=== PATIENT | female | born 1985 | race Caucasian/White ===

== ENCOUNTER 2017-03-11 17:42 | Observation (INO) | payer MEDICAID ==
[~2017-03-11] VITALS: Ht 175.3 cm; Wt 84.5 kg
--- NOTE | ~2017-03-11 | ER ---
PATIENT'S NAME: GINO FORMAN [facility] AGE: 31 Y [address] ROOM: [place] [address] LOCATION: GPCU ADMIT DATE: 03/11/2017 ER/Outpatient Report DISCHARGE DATE: FAMILY PHYSICIAN: Chana Rogers MD ATTENDING PHYSICIAN: KARLA FARRELL Time of Arrival: 1742 hours. Time Seen: 1818 hours. IDENTIFICATION: A 31-year-old female. CHIEF COMPLAINT: Nausea, vomiting, elevated blood sugar. HISTORY OF PRESENT ILLNESS: The patient is a 31-year-old female with insulin-dependent diabetes, who went to a wedding last night and drank quite a bit of alcohol to the point where she "passed out." She does not remember what happened. She reports probably falling. She has a contusion on her frontal scalp that she does not remember what happened, she said maybe she fell down the stairs. She has had nausea and vomiting today times greater than 20, loose stools x3. No blood in her stools. No dark, tarry, or black stools. She has an insulin pump, but woke up this morning and it was off. She had NovoLog 1.2 units basal rate and boluses. She just bolused herself 6 units while here in the emergency room. She has had a history of DKA. She does not have a primary care physician. She was admitted in August of 2014 with DKA. She has seen Dr. Rogers, but is currently not seeing anyone. ALLERGIES: NO KNOWN DRUG ALLERGIES. CURRENT MEDICATIONS: Insulin pump with NovoLog. MEDICAL PROBLEMS: History of diabetes mellitus, insulin requiring, on an insulin pump and history of DKA. PRIOR SURGERIES: section. SOCIAL HISTORY: The patient lives here in [place]. Tobacco use, 1 pack per day. Alcohol use, socially, but she drank heavily last night. Drug use, denies. PATIENT'S NAME: GINO FORMAN [facility] AGE: 31 Y [address] ROOM: [place] [address] LOCATION: GPCU ADMIT DATE: 03/11/2017 ER/Outpatient Report DISCHARGE DATE: FAMILY PHYSICIAN: Chana Rogers MD ATTENDING PHYSICIAN: KARLA FARRELL REVIEW OF SYSTEMS: All systems reviewed and negative other than what is noted in the HPI. She does have an IUD. Last menstrual period, uncertain. FAMILY HISTORY: No pertinent family history identified. PHYSICAL EXAMINATION: VITAL SIGNS: Height 5 feet 9 inches and weight 76.6 kg. Blood pressure 120/39, pulse 118, respirations 18, temperature 99.2, and saturations 100%. GENERAL: A 31-year-old female, in obvious distress. Nausea and vomiting. HEENT: Head: Normocephalic. Ears: TMs translucent, both ears. Eyes: Pupils equal and reactive to light and accommodation. Extraocular movements intact. She does have a contusion on her frontal scalp midline. Nose: Mucosa pink. No lesions. Mouth: No lesions. Mucous membranes are dry. Pharynx benign. NECK: Supple. No lymphadenopathy. No tenderness to palpation of her cervical spine. LUNGS: Clear to auscultation. Breath sounds are equal. No rhonchi, wheezes, or rales. HEART: Sinus tachycardia. No murmur, rub, or gallop. ABDOMEN: Bowel sounds present. Soft, nondistended. Tender to palpation. No rebound or guarding. SKIN: [place], warm, and dry. No lesions or rashes noted other than the contusion, frontal scalp, and then she does have some abrasions on her lower extremities. No tenderness to pelvic rock. EXTREMITIES: Full range of motion. No deformities noted. LABORATORY DATA: VBG; pH 7.23, pCO2 33, bicarb 14.1. Hemoglobin A1c 7.2. UA: Specific gravity 1.020, pH 5, glucose 1000 mg/dL, ketones 150 mg/dL. UA otherwise unremarkable. Urine hCG is negative. Initial Accu-Chek was elevated in the high 400s, repeat Accu-Chek was 439 at 7:30 p.m. Procalcitonin 0.82. Ketones positive at 1:16. Sodium 133; potassium 4.9; chloride 95; CO2 15; BUN 21; creatinine 1.4, this is up from 0.8 in 2014; and blood sugar 456. AST 207, ALT 136. Magnesium 2.1. Amylase 35, lipase 64. Initial venous pH 7.25. Hemoglobin 15.1, hematocrit 45, platelets 298, and white count 16.9 with 90% neutrophils. EMERGENCY DEPARTMENT COURSE: An IV was initiated, 1 L of normal saline bolus, 2nd L of normal saline bolus, and then a 3rd L at 200 mL/h. Zofran 4 mg for nausea, repeated x1. Insulin regular 10 units IV with insulin drip per protocol. PATIENT'S NAME: GINO FORMAN [facility] AGE: 31 Y [address] ROOM: [place] [address] LOCATION: GPCU ADMIT DATE: 03/11/2017 ER/Outpatient Report DISCHARGE DATE: FAMILY PHYSICIAN: Chana Rogers MD ATTENDING PHYSICIAN: KARLA FARRELL IMPRESSION AND PLAN: 1. Diabetic ketoacidosis. DKA protocol initiated in the emergency room. Dr. Farrell evaluated the patient in the emergency room. Plan for admission. 2. Nausea and vomiting secondary to diabetic ketoacidosis. Zofran given in the emergency room. 3. Possible head injury with questionable fall. Head CT and cervical spine CT were obtained and were negative per Dr. Gupta, radiologist. One-view chest x-ray, no acute process, pending Radiology over-read. 4. Acute kidney injury with creatinine of 1.4. 5. Elevated liver enzymes. 6. Elevated white blood cell count, mildly elevated procalcitonin, and elevated lactate. No infectious etiology identified. Plan per Dr. Farrell. Actually 40 minutes of critical care provided with this patient. LUKE GUILLAUME MD CAR/modl /[id number] d: 03/12/17 0318 t: 03/12/17 0404, OUTPATIENT REPORT
--- NOTE | ~2017-03-11 | HP ---
PATIENT'S NAME: GINO FORMAN [facility] AGE: 31 Y [address] ROOM: [place] [address] LOCATION: GPCU ADMIT DATE: 03/11/2017 History & Physical DISCHARGE DATE: FAMILY PHYSICIAN: Chana Rogers MD ATTENDING PHYSICIAN: KARLA FARRELL DATE OF SERVICE: CHIEF COMPLAINT: Nausea, vomiting, and hyperglycemia resulting in DKA. HISTORY OF PRESENT ILLNESS: This is a 31-year-old female with a past medical history remarkable for type 1 diabetes, on home insulin pump, who states that yesterday last night she went to a wedding democrat in a friend's house and she drank so much alcohol that she passed out. Somehow, one of her friends brought her back home last night, and apparently she probably she had fallen down the stairs at home, but she was not sure. This morning, she woke up on her bed with her insulin pump out of place near the side of her bed. She woke up and she felt nauseated and she vomited once in the morning. She checked her fingerstick glucose and it was 470. She used insulin pump to give the loading dose and then she went to eat breakfast with a friend outside; and after that, she came back and she felt nauseous again and she vomited about 20 times. Because of the nausea, vomiting, and hyperglycemia, the patient came here to the ER for evaluation. She denies any fever, chills, chest pain, cough, palpitation, shortness of breath, confusion, headache, or any other complaints. The patient does have loose stool, but she believes it is from the alcohol, she has had about 3 episodes of loose stool today. REVIEW OF SYSTEMS: As mentioned in the history of present illness. All other systems were reviewed and were negative except those mentioned in the history of present illness. PAST MEDICAL HISTORY: Type 1 diabetes, diagnosed at age 10, on home insulin pump, she has had one DKA in the past, this is her 2nd time. ALLERGIES: NO KNOWN DRUG ALLERGIES. HOME MEDICATIONS: On home insulin pump. PATIENT'S NAME: GINO FORMAN [facility] AGE: 31 Y [address] ROOM: [place] [address] LOCATION: GPCU ADMIT DATE: 03/11/2017 History & Physical DISCHARGE DATE: FAMILY PHYSICIAN: Chana Rogers MD ATTENDING PHYSICIAN: KARLA FARRELL SOCIAL HISTORY: The patient is active cigarette smoker about 1 pack per day for the last 10 years. She is a social alcohol drinker, she denies daily alcohol intake, and she denies alcohol abuse, she just drink on and off only at parties. She denies any illegal drug use. FAMILY HISTORY: Mother is healthy. Father had myocardial infarction at age 50s. PAST SURGICAL HISTORY: Status post x1. PHYSICAL EXAMINATION: VITAL SIGNS: At the time of my dictation, temperature 98, heart rate 90, respirations 14, blood pressure 120/80, and saturation 99% on room air. GENERAL APPEARANCE: Alert and oriented x3, in no acute distress. The patient looks dry. HEENT: Pupils equally round and reactive to light. Extraocular muscles intact. Anicteric sclerae. Nasal turbinates are normal bilaterally. Dry oral mucosa. NECK: No JVD. No neck stiffness. No cervical lymphadenopathy. CARDIOVASCULAR: Regular rate and rhythm. Normal S1, S2. No murmur, no rubs, no gallops. RESPIRATORY: Clear. No rhonchi, no rales, no wheezing, no crackles. ABDOMEN: Soft, nontender, nondistended, normal bowel sounds, no hepatosplenomegaly. Bowel sounds present. EXTREMITIES: No edema in upper or lower extremities. SKIN: She has a tender hematoma in the front of her head from the fall and a minor skin laceration on her left hand. NEUROLOGICAL: Grossly nonfocal. MUSCULOSKELETAL: Range of motion intact. LABORATORY DATA: Venous blood gas on room air show pH of 7.25, pCO2 37, bicarbonate 16.2, and lactic acid 5.4. White blood cells 16.9, hemoglobin 15.1, hematocrit 45, platelet 298, glucose 456, BUN 21, and creatinine 1.4. Sodium 133, potassium 4.9, chloride 95, CO2 15, calcium 9.5, total protein 8.2, albumin 4.6, AST 207, ALT 136, alkaline phosphatase 111, total bilirubin 1.4, phosphorus 6.2, magnesium 2.1, anion gap 27.9, and GFR 44. Hemoglobin A1c 7.2. Urinalysis negative for nitrate, negative for protein, 150 ketones, 1000 glucose, and negative leukocyte. Urine hCG negative. Amylase 35, lipase 64, acetone positive. Procalcitonin 0.82. IMAGING STUDY: PATIENT'S NAME: GINO FORMAN [facility] AGE: 31 Y [address] ROOM: [id number] [place], [place] [address] LOCATION: GPCU ADMIT DATE: 03/11/2017 History & Physical DISCHARGE DATE: FAMILY PHYSICIAN: Chana Rogers MD ATTENDING PHYSICIAN: KARLA FARRELL 1. CT of the brain without contrast on admission showed negative CT. 2. CT of the cervical spine without contrast on admission negative for any fracture. EMERGENCY ROOM COURSE: In the emergency room, the patient got a total of 2 L of normal saline and also got 10 units of insulin bolus, IV regular insulin, and also the patient also got 6 units from the insulin pump. ASSESSMENT AND PLAN: 1. Regarding her diabetic acidosis: The cause could be from noncompliance with insulin pump use and likely from the alcohol-induced diabetic ketoacidosis. The plan will be use diabetic ketoacidosis protocol and check a basic metabolic panel every 2 hours to decide to change to intravenous fluids with or without potassium and also check fingerstick glucose every hour and continue currently with normal saline at 200 mL/hr and continue intravenous regular insulin drip per diabetic ketoacidosis protocol. I will get a chest x-ray and also EKG as part of the diabetic ketoacidosis workup. Due to her elevated lactic acid, white blood cell, and procalcitonin, I will also be getting a blood culture one set. The patient does not look septic to me. The elevation of lactic acid, leukocytosis, and the procalcitonin could be from reactive from diabetic ketoacidosis; however, given that the patient does have elevation of lactic acid, white blood cells, and procalcitonin, I will cover her empirically with broad-spectrum antibiotic one dose and tomorrow can decide depending on her clinical course. I will cover her with 1 dose of vancomycin and 1 dose of Zosyn. Further plan depends on clinical course. I will also consult burn table operator to help her transition into insulin pump and also focus on the importance of insulin pump compliance. 2. Regarding her nausea and vomiting: Intravenous Zofran p.r.n. 3. Regarding her deep vein thrombosis prophylaxis: The patient is young, can ambulate, I will use compression devices and heparin subcutaneous 5000 units 3 times daily. 4. Regarding the acute kidney injury, likely from the nausea, vomiting from dehydration: The patient is currently on intravenous fluids and we will check the basic metabolic panel every 2 hours until resolution of diabetic ketoacidosis. 5. Regarding her transaminitis: This is consistent with alcohol intake and we will trend the LFT and hydrate with normal saline for now. Time spent in care on the day of admission 35 minutes including chart review, interviewing the patient, examining the patient, addressing all the concerns and questions that the patient had, and going over the plan of care with the patient. I also went over the plan of care with the nurse. More than half of the total time spent was in counseling including addressing all the questions and concerns that the patient had and going over the plan of care with the PATIENT'S NAME: GINO FORMAN [facility] AGE: 31 Y [address] ROOM: [place] [address] [facility] ADMIT DATE: 03/11/2017 History & Physical DISCHARGE DATE: FAMILY PHYSICIAN: Chana Rogers MD ATTENDING PHYSICIAN: KARLA FARRELL patient. The remainder of the total time spent was in chart review and interview the patient and examining the patient. Further plan depends on clinical course. KARLA FARRELL MD CC/jumal /[id number]: [id number] T: [id number] HISTORY & PHYSICAL
[2017-03-11 18:35] LABS: BICARBONATE 16.2 mmol/L (18.0-23.0); PCO2 37 mmHg (35-45)
[2017-03-11 18:36] LABS: PO2 35 mmHg (80-90)
[2017-03-11 18:37] LABS: BASOPHIL # 0.1 K/uL (0.0-0.2); BASOPHIL % 0.4 %; HEMOGLOBIN 15.1 g/dL (11.0-15.0); IMMATURE GRANULOCYTE # 0.1 K/uL (0.0-0.3); IMMATURE GRANULOCYTE % 0.4 %; LYMPHOCYTE # 0.8 K/uL (0.8-4.0); LYMPHOCYTE % 4.9 %; MCH 31.3 pg (27.0-34.0); MCHC 33.6 gm/dL (32.0-36.5); MCV 93.4 fl (83.0-98.0); MONOCYTE # 0.6 K/uL (0.0-1.0); MONOCYTE % 3.7 %; MPV 9.8 fl (9.4-12.4); NEUTROPHIL # (ANC) 15.3 K/uL (1.8-7.8); NEUTROPHIL % 90.6 %; NRBC % 0 /100WBC (0-0.00); PLATELET COUNT 298 K/uL (150-450); RBC 4.82 M/uL (3.50-5.00); RDW-CV 12.1 % (11.9-14.6)
[2017-03-11 18:38] LABS: WBC 16.9 K/uL (4.0-11.0)
[2017-03-11 18:39] LABS: LACTATE 5.4 mEq/L (0.50-1.60)
[2017-03-11 18:55] LABS: ALBUMIN 4.6 gm/dL (3.5-5.0); ALK PHOS 111 IU/L (33-138); ALT 136 IU/L (12-78); ANION GAP 27.9 (10.0-19.0); AST 207 IU/L (10-40); BLOOD UREA NITROGEN 21 mg/dL (6-24); CALCIUM 9.5 mg/dL (8.5-10.5); CHLORIDE 95 mMol/L (96-110); CO2 15 mMol/L (22-32); CREATININE 1.4 mg/dL (0.5-1.1); ESTIMATED GFR (MDRD EQUATION) 44; MAGNESIUM 2.1 mg/dL (1.8-2.6); PHOSPHORUS 6.2 mg/dL (2.5-4.9); POTASSIUM 4.9 mMol/L (3.7-5.1); SODIUM 133 mMol/L (135-145); TOTAL BILIRUBIN 1.4 mg/dL (0.0-1.5); TOTAL PROTEIN 8.2 g/dL (6.0-8.4)
[2017-03-11 19:22] LABS: BILIRUBIN URINE NEGATIVE (NEGATIVE); BLOOD URINE NEGATIVE /UL (NEGATIVE); COLOR URINE COLORLESS (YELLOW); GLUCOSE URINE 1000 mg/dL (NEGATIVE); KETONE URINE 150 mg/dL (NEGATIVE); LEUKOCYTES URINE NEGATIVE /UL (NEGATIVE); NITRITE URINE NEGATIVE (NEGATIVE); PROTEIN URINE NEGATIVE (NEGATIVE); TURBIDITY URINE CLEAR (CLEAR); UROBILINOGEN URINE NORMAL (NORMAL)
[2017-03-11 19:56] LABS: PCO2 33 mmHg (35-45)
[2017-03-11 19:58] LABS: BICARBONATE 14.1 mmol/L (18.0-23.0); PO2 37 mmHg (80-90)
[2017-03-11 21:51] LABS: AMPHETAMINE NEGATIVE (NEGATIVE); BARBITURATE NEGATIVE (NEGATIVE); COCAINE NEGATIVE (NEGATIVE); OPIATES NEGATIVE (NEGATIVE)
[2017-03-11 22:31] LABS: ANION GAP 17.1 (10.0-19.0); CREATININE 1.1 mg/dL (0.5-1.1); POTASSIUM 4.1 mMol/L (3.7-5.1)
[2017-03-11] MEDS ORDERED: NOVOLOG100 UNIT/M (22:44)
[2017-03-12 00:03] LABS: ANION GAP 15.8 (10.0-19.0); BLOOD UREA NITROGEN 19 mg/dL (6-24); CALCIUM 7.8 mg/dL (8.5-10.5); CHLORIDE 107 mMol/L (96-110); CO2 19 mMol/L (22-32); ESTIMATED GFR (MDRD EQUATION) > 60; POTASSIUM 3.8 mMol/L (3.7-5.1); SODIUM 138 mMol/L (135-145)
[2017-03-12 02:37] LABS: ANION GAP 13.3 (10.0-19.0); CALCIUM 7.5 mg/dL (8.5-10.5); CREATININE 1.1 mg/dL (0.5-1.1); POTASSIUM 4.3 mMol/L (3.7-5.1)
--- NOTE | 2017-03-12 05:33 | NUR ---
Significant Event: Patient alert and oriented x3. Temp was 99.0 with second assessment. Tylenol given with results. HR 110s when awake. 80s while asleep. All other vital signs stable. Insulin gtt continues per protocal. Dr. Johnston updated throughout shift. Fluids changed throughout shift per Dr. Johnston. Currently running D5 1/2 KCL 20meq K+ at 150ml/hr to Rt. wrist PIV. Lf. AC PIV saline locked. No nausea or vomiting since ER. Complains of pain to scattered scraps, bumps, and bruises from fall at home and sore throat. Up with stand-by assist. Calm and cooperative with all cares. Follow up: Hourly blood sugar checks.
--- NOTE | 2017-03-12 05:46 | NUR ---
Patient brought to ER by friend after having severe nausea and vomiting all morning. Patient went to a wedding the night before. Said she drank too much. Doesn't remember how she got home. Patient stated that she woke up and insulin pump wasn't on. Highest blood sugar from patient was 490. Patient unable to get blood sugar lower than 400 at home. Came to ER. Patient has scattered bruising, scrapes, and bumps. States she must have fallen down her stairs at home. Patient gave herself a bolus of insulin before coming to the ER from personal insulin pump. When she arrived to ER, received 10 unit bolus of insulin and was started on an insulin gtt at 3 units/hr. CT of head was done which was negative. Zofran was given x2 for nausea and patient was brought to PCU per PCU nurse. Arrived to floor at 2100. Dr. Johnston saw patient in ER and wrote orders there. Insulin gtt continueing per protocal. BMP Q2 hours. Results of both will be given to Dr. Johnston per orders.
[2017-03-12 06:27] LABS: ANION GAP 13.1 (10.0-19.0); BLOOD UREA NITROGEN 15 mg/dL (6-24); CALCIUM 7.6 mg/dL (8.5-10.5); CHLORIDE 111 mMol/L (96-110); CO2 21 mMol/L (22-32); CREATININE 0.9 mg/dL (0.5-1.1); POTASSIUM 4.1 mMol/L (3.7-5.1); SODIUM 141 mMol/L (135-145)
[2017-03-12 06:29] LABS: ESTIMATED GFR (MDRD EQUATION) > 60
[2017-03-12 08:30] LABS: BASOPHIL # 0.1 K/uL (0.0-0.2); BASOPHIL % 0.3 %; EOSINOPHIL % 0.1 %; HEMATOCRIT 39.9 % (33.0-46.0); HEMOGLOBIN 13.7 g/dL (11.0-15.0); IMMATURE GRANULOCYTE # 0.1 K/uL (0.0-0.3); IMMATURE GRANULOCYTE % 0.8 %; LYMPHOCYTE # 2.1 K/uL (0.8-4.0); LYMPHOCYTE % 11.4 %; MCH 31.5 pg (27.0-34.0); MCHC 34.3 gm/dL (32.0-36.5); MCV 91.7 fl (83.0-98.0); MONOCYTE # 1.7 K/uL (0.0-1.0); MONOCYTE % 9.1 %; MPV 9.9 fl (9.4-12.4); NEUTROPHIL # (ANC) 14.4 K/uL (1.8-7.8); NEUTROPHIL % 78.3 %; NRBC % 0 /100WBC (0-0.00); PLATELET COUNT 249 K/uL (150-450); RBC 4.35 M/uL (3.50-5.00); RDW-CV 12.2 % (11.9-14.6)
[2017-03-12 08:32] LABS: WBC 18.4 K/uL (4.0-11.0)
[2017-03-12 08:43] LABS: ANION GAP 16.7 (10.0-19.0); BLOOD UREA NITROGEN 14 mg/dL (6-24); CALCIUM 7.9 mg/dL (8.5-10.5); CHLORIDE 110 mMol/L (96-110); CO2 16 mMol/L (22-32); CREATININE 0.8 mg/dL (0.5-1.1); POTASSIUM 4.7 mMol/L (3.7-5.1); SODIUM 138 mMol/L (135-145)
[2017-03-12 08:44] LABS: ESTIMATED GFR (MDRD EQUATION) > 60
[2017-03-12 11:15] LABS: ANION GAP 12.9 (10.0-19.0); BLOOD UREA NITROGEN 14 mg/dL (6-24); CALCIUM 7.8 mg/dL (8.5-10.5); CHLORIDE 109 mMol/L (96-110); CO2 22 mMol/L (22-32); ESTIMATED GFR (MDRD EQUATION) > 60; POTASSIUM 3.9 mMol/L (3.7-5.1)
[2017-03-12 11:18] LABS: SODIUM 140 mMol/L (135-145)
--- NOTE | 2017-03-12 14:31 | NUR ---
Significant Event: A/Ox3. VSS on room air. R) wrist IV salinelocked. Insulin drip discontinued. Patient given 20units of levemir and started on moderate S/S insulin and 7units with meals. Denies N/V. Diabetic education consult for tomorrow AM. Throat lozenges ordered for sore throat PRN. Bactractin ointment PRN to R) knee and hand. Up ad merline. Pleasant and cooperative with cares.
[2017-03-13 03:26] LABS: BASOPHIL # 0.1 K/uL (0.0-0.2); BASOPHIL % 0.5 %; EOSINOPHIL # 0.1 K/uL (0.0-0.5); EOSINOPHIL % 0.9 %; HEMATOCRIT 36.5 % (33.0-46.0); HEMOGLOBIN 12.3 g/dL (11.0-15.0); IMMATURE GRANULOCYTE % 0.3 %; LYMPHOCYTE # 3.6 K/uL (0.8-4.0); LYMPHOCYTE % 37.6 %; MCH 31.3 pg (27.0-34.0); MCHC 33.7 gm/dL (32.0-36.5); MCV 92.9 fl (83.0-98.0); MONOCYTE # 0.5 K/uL (0.0-1.0); MPV 9.8 fl (9.4-12.4); NEUTROPHIL # (ANC) 5.4 K/uL (1.8-7.8); NEUTROPHIL % 55.7 %; NRBC % 0.2 /100WBC (0-0.00); RBC 3.93 M/uL (3.50-5.00); RDW-CV 12.5 % (11.9-14.6); WBC 9.7 K/uL (4.0-11.0)
[2017-03-13 03:27] LABS: PLATELET COUNT 195 K/uL (150-450)
[2017-03-13 03:46] LABS: ALK PHOS 61 IU/L (33-138); ALT 60 IU/L (12-78); ANION GAP 11.8 (10.0-19.0); AST 41 IU/L (10-40); BLOOD UREA NITROGEN 11 mg/dL (6-24); CALCIUM 7.7 mg/dL (8.5-10.5); CHLORIDE 111 mMol/L (96-110); CO2 24 mMol/L (22-32); CREATININE 0.8 mg/dL (0.5-1.1); ESTIMATED GFR (MDRD EQUATION) > 60; MAGNESIUM 2.1 mg/dL (1.8-2.6); POTASSIUM 3.8 mMol/L (3.7-5.1); SODIUM 143 mMol/L (135-145); TOTAL PROTEIN 5.7 g/dL (6.0-8.4)
[2017-03-13 03:49] LABS: PHOSPHORUS 1.9 mg/dL (2.5-4.9); TOTAL BILIRUBIN 0.5 mg/dL (0.0-1.5)
--- NOTE | 2017-03-13 04:49 | NUR ---
Significant Event: Patient alert and oriented x3. HR 47-102. SBP 101-134. All other vital signs stable. On RA. Patient was drinking hot tea in bed. Spilled on self. Burn to abdomen. Ointment applied per Dr. Orozco. Patient requested long acting insulin be given at HS for coverage throughout the night in place of insulin pump. 8 units Levemir given per Dr. Orozco. Lab notified RN at 0350 of blood sugar of 44 with labs. Patient was given juice x2 and soup. Recheck 15mins later was 91. Diabetic education consult today. Up independently in room. Complaints of pain to burn on abdomen. Ice given with relief. Calm and cooperative with all cares. Follow up: Diabetic ed consult. D/C home today.
--- NOTE | 2017-03-13 10:44 | NUR ---
Diabetes consult: Patient with Type I diabetes and A1C of 7.2%. The patient was admitted for DKA. The patient reports becoming intoxicated and fell down some stairs. Patient states that when she woke up her insulin pump was not connected. She immediately reconnected her pump and noted her sugar in the "470's". She bolused for her blood sugar and began vomiting. The patient reports knowing she was "in trouble" and presented to the ER. At this time, DKA is resolved and orders received to restart insulin pump. Patient did receive Levemir 8 units last evening at 2200. Insulin pump was restarted with Novolog infusing to site to Left lower abdomen. Initial blood sugar was 84. Pump restarted with temp basal of 20% noted due to levemir being given the night before. The patient reports seeing a counselor for depression and would like to find a PCP that can help her with her diabetes and prescribe depression meds. Patient was informed of physicians here in town and would like to schedule with Dr. Butler. Appointment made with Dr. Butler March 20. Patient denies any additional needs.
[2017-03-13] MEDS ORDERED: BACTROBAN 2% OI22 GM EXT (11:34)
--- NOTE | 2017-03-13 12:45 | NUR ---
D/C ORDERS TO HOME RECEIVED. VSS AND RA. RICH QUESADA,RN WITH DIABETIC EDUCATION IN TO RESTART INSULIN PUMP AND TEACHING WAS DONE. THE PATIENT VERBALIZED UNDERSTANDING OF ALL EDUCATION AND DISMISSAL ORDERS. PIV D/C'D AND CATHETER INTACT. VSS AND RA. AMBULATED PER HER REQUEST TO THE FRONT ENTRANCE OF THE HOSPITAL AND HER FAMILY TO DRIVE HER HOME. PNEUMONIA VACCINE WAS GIVEN PER THE PATIENT'S REQUEST AND PER STANDING ORDER TO LT) POSTERIOR UPPER ARM SUBQ.
== END 2017-03-13 12:45 | disposition disaster alternative care site (69) ==
LOC: GMED 17:42 → GPCU 20:29
PROVIDERS: Family Medicine; Hospitalist; ADMIT Internal Medicine
DX: E10.10 Type 1 diabetes mellitus with ketoacidosis without coma (principal); K70.10 Alcoholic hepatitis without ascites; R65.10 Systemic inflammatory response syndrome (SIRS) of non-infectious origin without acute organ dysfunction; R11.2 Nausea with vomiting, unspecified; N17.9 Acute kidney failure, unspecified; D72.829 Elevated white blood cell count, unspecified; F17.210 Nicotine dependence, cigarettes, uncomplicated; Z96.41 Presence of insulin pump (external) (internal); Z98.890 Other specified postprocedural states; Z23 Encounter for immunization
CPT/HCPCS: G0009; G0378; G0480; J2001; J2020; J2405; J2543; J3370; J3480; J7030; J7040